=== PATIENT | male | born 1970 | race Caucasian/White ===

== ENCOUNTER 2017-04-18 19:30 | Emergency (ER) | payer MEDICARE, MEDICAID ==
[~2017-04-18] VITALS: Ht 182.9 cm; Wt 104.5 kg
[~2017-04-18 19:30] MED LIST: HYDR1CRE28 RECTAL; LISI10TA3 PO; METF500 PO; SIMV20TA PO
[2017-04-18 19:33] VITALS: BP 121/79; PULSE 59; RESP 16; TEMP 97.7; O2SAT 98
--- NOTE | 2017-04-18 20:20 | PD ---
HPI Chief Complaint: Back/ Neck Pain or Injury Time Seen by Provider: 20:13 Travel History International Travel<30 days: No Contact w/Intl Traveler<30days: No Traveled to known affect area: No History of Present Illness HPI PATIENT WAS IN SHOWER, HE STEPPED OUT, SLIPPED AND FELL ONTO LEFT SIDE OF CHEST WALL. PATIENT HAD NO LOC, PT DID NOT COMPLAIN, AND RELATIVE WANTED TO JUST BE CAUTIOUS. PFSH Past Medical History High Cholesterol: Yes Diabetes: Yes Patient Takes Glucophage: Yes Hypertension: Yes Tetanus Vaccination: > 5 Years Influenza Vaccination: No Social History Alcohol Use: No Tobacco Use: No Substance Use: No Allergies-Medications (Allergen,Severity, Reaction): Coded Allergies: No Known Allergies (Verified , 04/18/17) Reported Meds & Prescriptions Reported Meds & Active Scripts Active Lisinopril 10 Mg Tab 10 Mg PO DAILY Simvastatin 20 Mg Tab 20 Mg PO DAILY Glucophage (Metformin HCl) 500 Mg Tab 500 Mg PO BIDPC With meals Review of Systems Except as stated in HPI: all other systems reviewed are Neg Physical Exam Narrative GENERAL: SKIN: Warm and dry. HEAD: Atraumatic. Normocephalic. EYES: Pupils equal and round. No scleral icterus. No injection or drainage. ENT: No nasal bleeding or discharge. Mucous membranes pink and moist. NECK: Trachea midline. No JVD. CARDIOVASCULAR: Regular rate and rhythm. RESPIRATORY: No accessory muscle use. Clear to auscultation. Breath sounds equal bilaterally. GASTROINTESTINAL: Abdomen soft, non-tender, nondistended. Hepatic and splenic margins not palpable. MUSCULOSKELETAL: Extremities without clubbing, cyanosis, or edema. No obvious deformities. NO PALPABLE CREPITUS BUT AN ABRASION NOTED ON POSTERIOR TIP OF [place] REGION NEUROLOGICAL: Awake and alert. No obvious cranial nerve deficits. Motor grossly within normal limits. Five out of 5 muscle strength in the arms and legs. Normal speech. PSYCHIATRIC: Appropriate mood and affect; insight and judgment normal. Data Data Last Documented VS Vital Signs Date Time Temp Pulse Resp B/P Pulse Ox O2 Delivery O2 Flow Rate FiO2 04/18/17 19:33 97.7 59 16 121/79 98 Room Air Orders Ribs, Uni (W/Exp Cxr-Min 3vw) (04/18/17 ) [facility] Medical Decision Making Medical Screen Exam Complete: Yes Emergency Medical Condition: Yes Medical Record Reviewed: Yes Differential Diagnosis CONTUSION V ABRASION V RIB FX Narrative Course AFTER REVIEW OF XRAYS NEG FX NOTED, ALSO NO CONSOLIDATION/PTX/PLEURAL EFFUSION NOTED EITHER Patient Instructions: Contusion in Adults (ED), General Instructions Disposition: 01 DISCHARGE HOME Condition: Stable Wale Lilly MD Apr 18, 2017 20:20
--- NOTE | 2017-04-18 21:07 | RADRPT ---
EXAM DATE/TIME: 04/18/2017 20:39 [place] COMPARISON: No previous studies available for comparison. INDICATIONS : Fell today. MEDICAL HISTORY : Hypercholesterolemia. Hypertension SURGICAL HISTORY : None. ENCOUNTER: Initial ACUITY: 1 day PAIN SCORE: 5/10 LOCATION: Left chest Ribs. FINDINGS: Multiple views of the left ribs were performed. There is no evidence of displaced fracture. No dest ructive lesions or areas of periosteal thickening are seen. Expiratory view of the chest is negative for pneumothorax. The mediastinal structures are midline. CONCLUSION: Normal examination for a patient of this age. Yosvany Rivera MD on April 18, 2017 at 21:04 Board Certified Radiologist. This report was verified electronically.
== END 2017-04-18 22:07 | disposition home or self-care (01) ==
LOC: NEPD 19:30
DX: S30.0XXA Contusion of lower back and pelvis, initial encounter (principal); E78.00 Pure hypercholesterolemia, unspecified; E11.9 Type 2 diabetes mellitus without complications; I10 Essential (primary) hypertension; Z79.899 Other long term (current) drug therapy; W01.0XXA Fall on same level from slipping, tripping and stumbling without subsequent striking against object, initial encounter
CPT/HCPCS: 71101; 99283